=== PATIENT | female | born 1945 | race Caucasian/White ===

== ENCOUNTER 2017-11-07 06:47 | Day surgery (SDC) | payer OTHER ==
[~2017-11-07] VITALS: Ht 165.1 cm; Wt 81.8 kg
[~2017-11-07 06:47] MED LIST: ATEN50TA8 PO; CEFAZOLIN 2000MG IV PUSH 15 ML IV SCH; FURO-85 PO; LACTATED RINGER'S 1000ML 1,000 ML IV SCH; LISI10TA PO
[2017-11-07] MEDS ORDERED: IBUP-1050 PO (07:20)
[2017-11-07 07:25] VITALS: BP 169/74; PULSE 64; TEMP 37.1; O2SAT 97; Ht 165.1 cm; Wt 81.8 kg
[2017-11-07] MEDS ORDERED: MIDAZOLAM HCL 1 MG/ML 2ML VIAL ONE (07:48)
[2017-11-07] MEDS ORDERED: ROCURONIUM BROMIDE 10 MG/ML 5 ML VIAL IV ONE (07:48)
[2017-11-07] MEDS ORDERED: PROPOFOL IV EMULSION 10 MG/ML 20 ML VIAL IV ONE (07:48)
[2017-11-07] MEDS ORDERED: LIDOCAINE HCL 2% 2 ML VIAL (20MG/ML) ONE (07:48)
[2017-11-07] MEDS ORDERED: FENTANYL CITRATE INJ 50 MCG/1 ML 2 ML VIAL ONE (07:49)
[2017-11-07] MEDS ORDERED: ATROPINE SULFATE 0.1 MG/ML 5ML SYR IV PRN (08:30)
[2017-11-07] MEDS ORDERED: EpHEDrine SULFATE INJ 50 MG/ML AMP IV PRN (08:30)
[2017-11-07] MEDS ORDERED: NALOXONE HCL 0.4 MG/1 ML VIAL/CARP IV PRN (08:30)
[2017-11-07] MEDS ORDERED: HYDROmorphone INJ 2 MG/ML SYR/VIAL IV PRN (08:30)
[2017-11-07] MEDS ORDERED: FLUMAZENIL 0.1 MG/1 ML 10 ML VIAL IV PRN (08:30)
[2017-11-07] MEDS ORDERED: PHENYLEPHRINE 100MCG/ML 5ML SYR IV PRN (08:30)
[2017-11-07] MEDS ORDERED: LABETALOL HCL IV 5 MG/ML 20ML IV PRN (08:30)
[2017-11-07] MEDS ORDERED: ONDANSETRON INJ 2 MG/ML 2 ML VIAL IV PRN ×2 (08:30→10:30)
--- NOTE | 2017-11-07 08:46 | History & Physical Bridge Note ---
H&P Re-Evaluation Bridge Note: I have examined the patient, reviewed the History & Physical and in the interval since the performance of the History & Physical I have noted the following changes of clinical significance: No changes noted
[2017-11-07] MEDS ORDERED: CEFAZOLIN SOD 1 GM VIAL ONE (09:01)
[2017-11-07] MEDS ORDERED: BUPIVACAINE 0.5 % 5 MG/1 ML MPF 30ML VIAL ONE (09:02)
[2017-11-07] MEDS ORDERED: HEPARIN SOD (PORCINE) 1000 UNIT/ML 10 ML VIAL ONE (09:02)
[2017-11-07] MEDS ORDERED: NEOSTIGMINE METHYLSULFATE 5 MG/5 ML SYR ONE (09:45)
[2017-11-07] MEDS ORDERED: GLYCOPYRROLATE INJ 0.2 MG/ML VIAL ONE ×2 (09:45→09:59)
[2017-11-07] MEDS ORDERED: DEXAMETHASONE SOD INJ 4 MG/ML VIAL ONE (09:45)
[2017-11-07] MEDS ORDERED: ONDANSETRON INJ 2 MG/ML 2 ML VIAL ONE (09:45)
[2017-11-07] MEDS ORDERED: SODIUM CHLORIDE 0.9% 1000ML 1,000 ML IV SCH (10:27)
--- NOTE | 2017-11-07 10:27 | [facility] Post Operative Brief Note ---
Immediate Operative Summary Operative Date Nov 07, 2017. Pre-Operative Diagnosis Cholecystitis Post-Operative Diagnosis Same Procedure(s) Performed Laparoscopic Cholecystectomy Surgeon Dr Kilpatrick Jar Capper Surgeon(s) Tete Barkley PA-C Estimated Blood Loss 20ml Findings Consistent with Post-Op Diagnosis Specimens A. Gallbladder Drains None Anesthesia Type General Complication(s) none Disposition Disposition: Recovery Room / PACU
--- NOTE | 2017-11-07 10:29 | Discharge Instructions ---
Discharge Instructions Date of Service Nov 07, 2017. Admission Reason for Admission: Right Upper Quadrant Abdominal Pain Discharge Discharge Diagnosis / Problem: Same Discharge Goals Goal(s): Decrease discomfort Activity Recommendations Activity Limitations: per Instructions/Follow-up section Lifting Limitations: no more than 10 pounds (for 2 weeks) Shower/Bathe: tomorrow (shower only) . Instructions / Follow-Up Instructions / Follow-Up Post-Surgical ~ Discharge Instructions Activity Recommendations: - lifting limitation: (10 pounds for 2 weeks), - exercise/sex/sports limit: (nonstrenuous for 2 weeks), - driving or machine use limit: (none for 1 week), - Shower/bathe limit: (may shower beginning tomorrow) Diet: - Resume previous diet SPECIAL CARE INSTRUCTIONS: - May shower in 24 hours. Let water run over area and pat dry. - Leave steri strips on for one week. - Call the surgeon's office with any questions or concerns - - (ex. temperature higher than 101 degrees F, excessive bleeding or pain). MEDICATIONS: - Resume previous medications unless instructed otherwise by your surgeon. - Ibuprofen 600 mg every 6 hours with food - Percocet 1 every 4 hours, as needed for pain FOLLOW UP VISIT: - If not already scheduled, please call the office to schedule a two week follow-up appointment. Office number Current Hospital Diet Patient's current hospital diet: Discharge Diet Recommended Diet: Regular Diet Procedures Procedures Performed: Laparoscopic Cholecystectomy Pending Studies Studies pending at discharge: yes List of pending studies: Pathology Medical Emergencies . Who to Call and When: Medical Emergencies: If at any time you feel your situation is an emergency, please call 911 immediately. . Non-Emergent Contact Non-Emergency issues call your: Primary Care Provider, Surgeon Call Non-Emergent contact if: your pain is worsening, wound has increased redness, wound has increased pain . "Provider Documentation" section prepared by Romel Kilpatrick. .
[2017-11-07] MEDS ORDERED: OXYCODONE/ACETAMINOPHEN 5-325 TAB PO PRN (10:30)
[2017-11-07] MEDS ORDERED: MoRPHine SULFATE 4 MG/ML 1 ML CARP\\VIAL IV PRN (10:30)
[2017-11-07] MEDS: FENTANYL CITRATE INJ 50 MCG/1 ML 2 ML VIAL IV PRN ×4 (10:43→10:59)
[2017-11-07] MEDS: MEPERIDINE HCL 25 MG/ML CARP IV PRN ×2 (11:00→11:06)
--- NOTE | 2017-11-07 11:23 | Anesthesiology Progress Note ---
Anesthesia Post Op Note Date & Time Nov 07, 2017 at 11:23 Vital Signs Pain Intensity: 4 Vital Signs Past 12 Hours Date Time Temp Pulse Resp B/P (MAP) Pulse Ox O2 Delivery O2 Flow Rate FiO2 11/07/17 11:15 57 16 120/58 99 Room Air 11/07/17 11:05 53 16 134/66 100 Room Air 11/07/17 10:55 55 16 149/61 100 Oxymask 10 11/07/17 10:46 62 16 157/62 100 Oxymask 10 11/07/17 10:38 36.4 68 16 153/75 97 Oxymask 10 11/07/17 07:25 37.1 64 16 169/74 (105) 97 Room Air Notes Mental Status: alert / awake / arousable, participated in evaluation Pt Amnestic to Procedure: Yes Nausea / Vomiting: adequately controlled Pain: adequately controlled Airway Patency, RR, SpO2: stable & adequate BP & HR: stable & adequate Hydration State: stable & adequate Anesthetic Complications: no major complications apparent
[2017-11-07 11:27] VITALS: BP 129/60; PULSE 52; TEMP 36.4; O2SAT 95
--- NOTE | 2017-11-07 11:48 | OPERATIVE REPORT ---
DATE OF OPERATION: 11/07/2017 PREOPERATIVE DIAGNOSES: Cholelithiasis and chronic cholecystitis. POSTOPERATIVE DIAGNOSES: Same. PROCEDURE: Laparoscopic cholecystectomy. SURGEON: Finesse. APPLICATION COORDINATOR: Tete Barkely PA-C FINDINGS: The gallbladder had multiple large stones within the lumen. It was not dilated. The cystic duct was not dilated. Liver was of normal size and contour. There were adhesions of the omentum to the gallbladder in the body, infundibulum and neck area. There was some bleeding from the gallbladder bed following removal of the gallbladder away from the bed. This was controlled with cautery. TECHNIQUE: The patient was given a general anesthetic and the area was prepped and draped in the usual sterile fashion. Transverse incision was made below the umbilicus and carried down through the subcutaneous tissue to the fascia, which was grasped with 2 Tonny clamps and incised between. The peritoneum was identified, incised, and the introducer was placed bluntly. The abdomen was then insufflated to a pressure of 15 mmHg with carbon dioxide. The upper midline, midclavicular and anterior axillary introducers were placed under direct vision through small skin incisions. Traction was placed on the gallbladder. The adhesions to the gallbladder were taken down using blunt cautery and dissection where appropriate until the gallbladder was free of adhesion. Traction was placed on the infundibulum area and elevated and the peritoneum was opened beginning on the lateral side. The infundibulum was dissected away from the liver on the lateral side and the peritoneal and connective tissue anteriorly were peeled towards the common bile duct and the triangle of Calot was opened and entered medially and the gallbladder was dissected away from the liver on that medial side as well. That allowed for better mobility. Further dissection of the connective tissue allowed me to peel it down towards the common bile duct and identify the cystic duct. The cystic duct was then skeletonized and the plane was established behind the cystic duct allowing me to identify with confidence the cystic duct and gallbladder junction. Further dissection was then carried out of the body away from the gallbladder to create an additional size to the window, which allowed me then to identify the cystic artery and skeletonize it. Three clips were placed on the proximal cystic duct, 1 near the gallbladder and it was divided. Two clips were placed on the proximal cystic artery, 1 near the gallbladder and it was divided. The gallbladder was then peeled off the liver bed using electrocautery. It was placed into an Endobag and brought out through the upper midline introducer site, where I had to open the gallbladder, crushed and removed the stones in order to extract the gallbladder within the bag, but I was able to do that. That introducer was replaced and liver edge was elevated. There was about 20 mL of blood present with clot. That was removed and the gallbladder bed was inspected. There were 2 areas of oozing from the gallbladder bed that were easily controlled with cautery. The area of the clips was inspected. There was no bleeding. The subdiaphragmatic and subhepatic spaces were irrigated and the irrigation was removed and that was repeated until the return was clear. The liver edge was allowed to fall back into its anatomic position and we waited 2 minutes by the clock and we inspected and there was no collection of blood below the liver or above. The gas was allowed to escape and introducers were removed. The fascia of the umbilical introducer site was closed with interrupted 0 Vicryl and the fascia of the upper midline introducer site was closed with interrupted 0 Vicryl. The skin of all the incisions was closed with 4-0 Monocryl in either an interrupted or running subcuticular fashion. Skin was anesthetized with 0.5% Marcaine. The skin was cleansed, dried, benzoin placed and Steri-Strips applied. The estimated blood loss was 20 mL. Sponge, needle and instrument counts were correct prior to closure. The patient tolerated the surgical procedure without complication and was transferred to recovery. I attest to the content of the Intraoperative Record and any orders documented therein. Any exception s are noted below.
[2017-11-07 11:55] VITALS: BP 156/71; PULSE 62; O2SAT 98
[2017-11-07 12:25] VITALS: BP 151/70; PULSE 53; TEMP 36.6; O2SAT 97
== END 2017-11-07 12:52 | disposition home or self-care (01) ==
LOC: C.ACU 06:47
PROVIDERS: ATTEND Surgery
DX: K80.10 Calculus of gallbladder with chronic cholecystitis without obstruction (principal); M19.90 Unspecified osteoarthritis, unspecified site; I10 Essential (primary) hypertension; L71.9 Rosacea, unspecified; Z79.899 Other long term (current) drug therapy